=== PATIENT | male | born 2000 | race Hispanic/Latino ===

== ENCOUNTER 2024-05-25 14:29 | Emergency (ER) | payer OTHER, BC ==
[~2024-05-25] VITALS: Ht 180.3 cm; Wt 77.1 kg
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
[2024-05-25 14:50] VITALS: BP 135/87; PULSE 88; RESP 16; TEMP 98.3; O2SAT 99
[2024-05-25] MEDS: ibuPROFEN 800 MG TAB PO ONE (14:59)
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
[2024-05-25] MEDS ORDERED: IBUP-2077 PO (15:19)
--- NOTE | 2024-05-25 15:31 | NUR ---
UNABLE TO DEPART DUE TO REG PROCESS
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
== END 2024-05-25 15:23 | disposition home or self-care (01) ==
LOC: EDH 14:29
DX: S60.211A Contusion of right wrist, initial encounter (principal); X58.XXXA Exposure to other specified factors, initial encounter; Y93.89 Activity, other specified; Y92.89 Other specified places as the place of occurrence of the external cause; Y99.8 Other external cause status
CPT/HCPCS: 73110; 99283

== ENCOUNTER 2024-08-25 00:39 | Emergency (ER) | payer OTHER ==
[~2024-08-25] VITALS: Ht 182.9 cm; Wt 81.6 kg
[~2024-08-25 00:39] MED LIST: IBUP-2077 PO
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
[2024-08-25] MEDS ORDERED: AMOX1TAB16 PO (01:13)
[2024-08-25 01:16] VITALS: BP 140/74; PULSE 89; RESP 17; TEMP 98.2; O2SAT 98
== END 2024-08-25 01:31 | disposition home or self-care (01) ==
LOC: EDH 00:39
DX: S61.235A Puncture wound without foreign body of left ring finger without damage to nail, initial encounter (principal); Z79.899 Other long term (current) drug therapy; W50.3XXA Accidental bite by another person, initial encounter; Y93.89 Activity, other specified; Y92.89 Other specified places as the place of occurrence of the external cause; Y99.8 Other external cause status
CPT/HCPCS: 90471; 90714; 99283